=== PATIENT | male | born 1985 | race Native Hawaiian/Other Pacific Islander ===

== ENCOUNTER 2016-08-22 08:19 | Outpatient (CLI) | payer OTHER | END 2016-08-22 19:51 | disposition home or self-care (01) | LOC: MRI 08:19 | DX: S89.92XA Unspecified injury of left lower leg, initial encounter (principal); M25.562 Pain in left knee ==

== ENCOUNTER 2017-03-13 12:36 | Outpatient (CLI) | payer OTHER | END 2017-03-13 19:37 | disposition home or self-care (01) | LOC: RAD 12:36 | DX: M25.562 Pain in left knee (principal) ==

== ENCOUNTER 2017-04-17 13:25 | Outpatient (CLI) | payer OTHER ==
[2017-04-17 13:56] LABS: PLATELET COUNT 300 K/uL (142-355)
[2017-04-17 15:16] LABS: POTASSIUM 4.4 mmol/L (3.6-5.2); SODIUM 140 mmol/L (136-145)
== END 2017-04-17 19:05 | disposition home or self-care (01) ==
LOC: LAB 13:25
PROVIDERS: Family Medicine
DX: J32.8 Other chronic sinusitis (principal); R03.0 Elevated blood-pressure reading, without diagnosis of hypertension; R53.83 Other fatigue; E66.8 Other obesity
CPT/HCPCS: 80053; 80061; 81000; 82306; 83735; 84439; 84443; 85027

== ENCOUNTER 2018-05-07 13:42 | Outpatient (CLI) | payer OTHER | END 2018-05-07 19:25 | disposition home or self-care (01) | LOC: MRI 13:42 | DX: M23.42 Loose body in knee, left knee (principal) ==

== ENCOUNTER 2018-09-25 14:42 | Outpatient (CLI) | payer OTHER | END 2018-09-25 23:55 | disposition home or self-care (01) | LOC: RAD 14:42 | DX: M25.562 Pain in left knee (principal) ==

== ENCOUNTER 2018-11-06 13:15 | Outpatient (CLI) | payer OTHER | END 2018-11-06 22:49 | disposition home or self-care (01) | LOC: RAD 13:15 | DX: M25.562 Pain in left knee (principal) ==

== ENCOUNTER 2019-03-12 14:34 | Outpatient (CLI) | payer OTHER | END 2019-03-12 23:59 | LOC: RAD 14:34 | DX: M25.562 Pain in left knee (principal) ==

== ENCOUNTER 2019-07-15 19:39 | Emergency (ER) | payer OTHER ==
[~2019-07-15] VITALS: Ht 182.9 cm; Wt 124.7 kg
[2019-07-15 20:50] VITALS: BP 148/78; TEMP 98.2
== END 2019-07-15 20:50 | disposition home or self-care (01) ==
LOC: ED 19:39
PROC: 0HQFXZZ Repair Right Hand Skin, External Approach (ICD-10-PCS; principal; 2019-07-15)
DX: S61.214A Laceration without foreign body of right ring finger without damage to nail, initial encounter (principal); W26.8XXA Contact with other sharp object(s), not elsewhere classified, initial encounter; Y93.89 Activity, other specified; Y92.89 Other specified places as the place of occurrence of the external cause
CPT/HCPCS: 99283

== ENCOUNTER 2020-03-11 13:13 | Outpatient (CLI) | payer OTHER | END 2020-03-11 21:31 | disposition home or self-care (01) | LOC: LAB 13:13 | DX: R19.7 Diarrhea, unspecified (principal); R51 Headache; R43.0 Anosmia | CPT/HCPCS: 87635; G2023; U0003 ==

== ENCOUNTER 2020-08-10 13:26 | Outpatient (CLI) | payer OTHER | END 2020-08-10 19:25 | disposition home or self-care (01) | LOC: LAB 13:26 | PROVIDERS: ATTEND Family Medicine | DX: Z20.828 Contact with and (suspected) exposure to other viral communicable diseases (principal); R50.9 Fever, unspecified; R19.7 Diarrhea, unspecified | CPT/HCPCS: 87635; G2023; U0003 ==

== ENCOUNTER 2022-09-02 10:02 | Outpatient (CLI) | payer OTHER | END 2022-09-02 19:24 | disposition home or self-care (01) | LOC: RAD 10:02 | PROVIDERS: ATTEND Orthopaedic Surgery | DX: M25.562 Pain in left knee (principal) ==

== ENCOUNTER 2022-09-09 14:21 | Outpatient (CLI) | payer OTHER | END 2022-09-09 21:24 | disposition home or self-care (01) | LOC: MRI 14:21 | PROVIDERS: ATTEND Orthopaedic Surgery | DX: S83.242D Other tear of medial meniscus, current injury, left knee, subsequent encounter (principal); Y92.89 Other specified places as the place of occurrence of the external cause ==

== ENCOUNTER 2023-01-11 08:48 | Outpatient (CLI) | payer OTHER | END 2023-01-11 18:52 | disposition home or self-care (01) | LOC: RAD 08:48 | PROVIDERS: ATTEND Nurse Practitioner | DX: R06.02 Shortness of breath (principal); Z72.0 Tobacco use ==